=== PATIENT | female | born 1995 | race Caucasian/White ===

== ENCOUNTER 2018-08-20 16:19 | Day surgery (SDC) | payer BC ==
[2018-08-20 16:29] VITALS: BMI 34.0
--- NOTE | 2018-08-20 17:10 | PDOC ---
Attending Attestation - Resident Resident Name: Scarlet Adams - ED Attending Attestation I have performed the following: I have examined & evaluated the patient, The case was reviewed & discussed with the resident, I agree w/resident's findings & plan, Exceptions are as noted - HPI HPI: 23 yo F presents with rectal FB. She inserted a plug approximately 1 hour prior to arrival, however, it advanced past the flange on its own. She tried to remove herself but was unable. She has had similar problem with the same device in the past. Denies abd pain. Able to pass flatus. - Physicial Exam PE: GENERAL: Awake, alert, and fully oriented, in no acute distress HEAD: No signs of trauma EYES: PERRLA, EOMI, sclera anicteric, conjunctiva clear ENT: Auricles normal inspection, hearing grossly normal, nares patent, oropharynx clear without exudates. Moist mucosa NECK: Normal ROM, supple, no lymphadenopathy, JVD, or masses LUNGS: Breath sounds equal, clear to auscultation bilaterally. No wheezes, and no crackles HEART: Regular rate and rhythm, normal S1 and S2, no murmurs, rubs or gallops ABDOMEN: Soft, nontender, normoactive bowel sounds. No guarding, no rebound. No masses EXTREMITIES: Normal range of motion, no edema. No clubbing or cyanosis. No cords, erythema, or tenderness NEUROLOGICAL: Cranial nerves II through XII grossly intact. Normal speech, normal gait SKIN: Warm, Dry, normal turgor, no rashes or lesions noted. RECTAL: Distal end of the device is just barely palpable, despite patient performing valsalva maneuver. - Medical Decision Making 08/20/18 17:10 Unable to remove the device in ED, unable to reach it as it was too far. Will obtain XR to see shape and location, then will contact Gen Surg.
--- NOTE | 2018-08-20 18:10 | PDOC ---
History of Present Illness - General Chief Complaint: Foreign Body (FB) Stated Complaint: FB Time Seen by Provider: 08/20/18 16:28 History Source: Patient Exam Limitations: No Limitations - History of Present Illness Initial Comments: 08/20/18 18:11 Pt is a previously healthy 23yo presenting to ED with a foreign body in the rectum. Pt said that less than 1 hour prior to ED arrival, she used a "butt plug " and it had gotten lodged in her rectum. She tried to remove it herself but she was unsuccessful. She has used this device in the past but it has never gotten stuck. She admits to feeling abdominal pressure, but denies abdominal pain. She noticed some specs of blood when she tried to remove the object herself but she denies current rectal bleeding. Her LMP was 2 months ago (she states that she has irregular periods) and last meal was 2 hours prior to ED arrival. She is denying abdominal pain, n/v/d, dysuria, chest pain, sob, numbness/tingling. PCP: Arturo PMH: none PSH: none Allergies: nkda Social: denies Past History - Past Medical History Allergies/Adverse Reactions: Allergies Allergy/AdvReac Type Severity Reaction Status Date / Time No Known Allergies Allergy Verified 08/20/18 16:21 Home Medications: Ambulatory Orders NK [No Known Home Medication] 08/20/18 COPD: No - Suicide/Smoking/Psychosocial Hx Smoking History: Never smoked Have you smoked in the past 12 months: No Information on smoking cessation initiated: No Hx Alcohol Use: No Drug/Substance Use Hx: No Substance Use Type: None Review of Systems - Review of Systems Able to Perform ROS?: Yes Is the patient limited Syriac proficient: No Constitutional: No: Chills, Fever, Weakness HEENTM: No: Recent change in vision, Throat Pain Respiratory: No: Cough, Shortness of Breath Cardiac (ROS): No: Chest Pain, Lightheadedness, Palpitations, Syncope ABD/GI: Yes: Other (foreign body). No: Constipated, Diarrhea, Nausea, Rectal Bleeding, Vomiting, Abdominal cramping : No: Dysuria, Frequency, Flank Pain Musculoskeletal: No: Back Pain, Joint Pain, Muscle Pain, Neck Pain Integumentary: No: Bruising, Change in Color Neurological: No: Headache, Numbness, Paresthesia, Tingling *Physical Exam - Vital Signs Last Vital Signs Temp Pulse Resp BP Pulse Ox 98.6 F 74 74 H 127/79 98 08/20/18 16:20 08/20/18 16:20 08/20/18 16:20 08/20/18 16:20 08/20/18 16:20 - Physical Exam Comments: 08/20/18 18:16 Pt laying in stretcher comfortably General Appearance: Yes: Nourished, Appropriately Dressed. No: Apparent Distress HEENT: positive: EOMI, DAVID, Pharynx Normal, Hearing Grossly Normal. negative: Pale Conjunctivae, Scleral Icterus (R), Scleral Icterus (L) Neck: positive: Trachea midline, Supple. negative: Lymphadenopathy (R), Lymphadenopathy (L) Respiratory/Chest: positive: Lungs Clear, Normal Breath Sounds. negative: Crackles, Rales, Rhonchi, Stridor, Wheezing Cardiovascular: positive: Regular Rhythm, Regular Rate, S1, S2. negative: Edema , JVD, Murmur Vascular Pulses: Carotid (R): 2+, Carotid (L): 2+, Dorsalis-Pedis (R): 2+, Doralis-Pedis (L): 2+ Gastrointestinal/Abdominal: positive: Normal Bowel Sounds, Soft. negative: Distended, Guarding, Rebound, Tenderness Rectal Exam: positive: normal exam, normal rectal tone, other (no gross blood on glove. Could feel foreign body however unable to retrieve.). negative: hemorrhoids Musculoskeletal: positive: Normal Inspection. negative: CVA Tenderness, CVA Tenderness (L) Extremity: positive: Normal Capillary Refill. negative: Coldness, Pedal Edema, Swelling, Calf Tenderness Integumentary: positive: Normal Color, Dry, Warm. negative: Erythema, Pale, Rash Neurologic: positive: crossing watchman II-XII NML intact, Fully Oriented, Alert, Normal Mood/ Affect, Normal Response, Motor Strength /5 ED Treatment Course - LABORATORY CBC & Chemistry Diagram: 08/20/18 18:43 08/20/18 18:43 - ADDITIONAL ORDERS Additional order review: Laboratory Results 08/20/18 17:11 Urine HCG, Qual Negative - RADIOLOGY Radiology Studies Ordered: Category Date Time Status PELVIS [RAD] Stat Radiology 08/20/18 17:35 Taken Medical Decision Making - Medical Decision Making 08/20/18 18:18 previously healthy 23yo f presenting with foreign body in rectum Vitals: wnl PE: benign Tried to remove foreign body manually however unsuccessful. HcG negative. Ordered pelvis xray. Xray showed foreign body lodged in pelvis. Will consult surgery for removal. Dr. Hansen accepted the case. Will transfer patient over to [facility] OR for foreign body removal. Will order surgical labs and have pt transferred. Pt is otherwise resting comfortably. Agrees with plan for removal in OR. Pt hemodynamically stable. *DC/Admit/Observation/Transfer Diagnosis at time of Disposition: Foreign body anus/rectum Qualifiers: Encounter type: initial encounter Qualified Code(s): T18.5XXA - Foreign body in anus and rectum, initial encounter - Discharge Dispostion Disposition: TRANSFER ACUTE CARE/OTHER HOSP Condition at time of disposition: Stable Decision to Admit order: No - Referrals - Patient Instructions - Post Discharge Activity
[2018-08-20 19:05] LABS: BASO % 1.7 % (0-2.0); EOS % 1.6 % (0-4.5); HEMOGLOBIN 11.8 GM/dl (10.7-15.3); LYMPH % 22.3 % (8-40); MCH 28.5 pg (25.7-33.7); MCHC 32.8 g/dl (32.0-36.0); MEAN CELL VOLUME 86.8 fl (80-96); MEAN PLT VOLUME 8.3 fl (7.5-11.1); MONO % 6.6 % (3.8-10.2); NEUT % 67.8 % (42.8-82.8); PLATELET COUNT 409 K/MM3 (134-434); RBC 4.14 M/mm3 (3.60-5.2); RDW 13.2 % (11.6-15.6); WHITE BLOOD COUNT 11.6 K/mm3 (4.0-10.8)
[2018-08-20 19:16] LABS: ALBUMIN 3.9 g/dl (3.5-5.0); ALK PHOS 60 U/L (32-92); ANION GAP 5 MMOL/L (8-16); BILIRUBIN,TOTAL 0.3 mg/dl (0.2-1.0); BLOOD UREA NITROGEN 12 mg/dl (7-18); CALCIUM 8.9 mg/dl (8.4-10.2); CHLORIDE 105 mmol/L (98-107); CO2 25 mmol/L (22-28); CREATININE 0.7 mg/dl (0.6-1.3); GLUCOSE,RANDOM 93 mg/dl (74-106); MAGNESIUM 1.9 mg/dL (1.8-2.4); PHOSPHOROUS 3.9 mg/dl (2.5-4.6); POTASSIUM 3.8 mmol/L (3.5-5.1); SGOT/AST 20 U/L (10-42); SGPT/ALT 14 U/L (10-40); SODIUM 135 mmol/L (136-145); TOT PROT 6.6 g/dl (6.4-8.3)
[2018-08-20 19:50] LABS: ACTIVATED PTT 38.3 SECONDS (25.2-36.5)
[2018-08-20 19:54] LABS: INR 1.18 (0.82-1.09); PROTHROMBIN TIME (PATIENT) 13.2 SEC (10.2-13.0)
[2018-08-20] MEDS ORDERED: PROPOFOL 20 ML ONE ×2 (22:17→22:30)
[2018-08-20] MEDS ORDERED: SUCCINYLCHOLINE CHLORIDE 200 MG/10 ML VIAL ONE (22:17)
[2018-08-20] MEDS ORDERED: ONDANSETRON 4 MG/2 ML VIAL ONE (22:31)
--- NOTE | 2018-08-20 22:57 | HP ---
CHIEF COMPLAINT: rectal foreign body PCP:? HISTORY OF PRESENT ILLNESS: Patient could not retrieve an anal sex toy and came to the ER and was xferred to [facility] for tx; it could not be removed by the ER physician. ER course was notable for: (1)as above (2) (3) Recent Travel: PAST MEDICAL HISTORY:none PAST SURGICAL HISTORY:none Social History: Smoking:none Alcohol:none Drugs: none Family History:none Allergies No Known Allergies Allergy (Verified 08/20/18 16:21) HOME MEDICATIONS: Home Medications Medication Instructions Recorded NK [No Known Home Medication] 08/20/18 REVIEW OF SYSTEMS CONSTITUTIONAL: Absent: fever, chills, diaphoresis, generalized weakness, malaise, loss of appetite, weight change HEENT: Absent: rhinorrhea, nasal congestion, throat pain, throat swelling, difficulty swallowing, mouth swelling, ear pain, eye pain, visual changes CARDIOVASCULAR: Absent: chest pain, syncope, palpitations, irregular heart rate, lightheadedness , peripheral edema RESPIRATORY: Absent: cough, shortness of breath, dyspnea with exertion, orthopnea, wheezing, stridor, hemoptysis GASTROINTESTINAL: Absent: abdominal pain, abdominal distension, nausea, vomiting, diarrhea, constipation, melena, hematochezia GENITOURINARY: Absent: dysuria, frequency, urgency, hesitancy, hematuria, flank pain, genital pain MUSCULOSKELETAL: Absent: myalgia, arthralgia, joint swelling, back pain, neck pain SKIN: Absent: rash, itching, pallor HEMATOLOGIC/IMMUNOLOGIC: Absent: easy bleeding, easy bruising, lymphadenopathy, frequent infections ENDOCRINE: Absent: unexplained weight gain, unexplained weight loss, heat intolerance, cold intolerance NEUROLOGIC: Absent: headache, focal weakness or paresthesias, dizziness, unsteady gait, seizure, mental status changes, bladder or bowel incontinence PSYCHIATRIC: Absent: anxiety, depression, suicidal or homicidal ideation, hallucinations. PHYSICAL EXAMINATION Vital Signs - 24 hr 08/20/18 08/20/18 16:20 21:29 Temperature 98.6 F 98.7 F Pulse Rate 74 70 Respiratory 74 H 15 Rate Blood Pressure 127/79 120/76 O2 Sat by Pulse 98 Oximetry (%) GENERAL: Awake, alert, and fully oriented, in no acute distress. HEAD: Normal with no signs of trauma. EYES: Pupils equal, round and reactive to light, extraocular movements intact, sclera anicteric, conjunctiva clear. No lid lag. EARS, NOSE, THROAT: nares patent, . Moist mucous membranes. NECK: Normal range of motion, supple without lymphadenopathy, JVD, or masses. LUNGS: Breath sounds equal, clear to auscultation bilaterally. No wheezes, and no crackles. No accessory muscle use. HEART: Regular rate and rhythm, normal S1 and S2 without murmur, rub or gallop. ABDOMEN: Soft, nontender, not distended, normoactive bowel sounds, no guarding, no rebound, no masses. No hepatomegaly or splenomegaly. RECTAL: FB present MUSCULOSKELETAL: Normal range of motion at all joints. No bony deformities or tenderness. No CVA tenderness. UPPER EXTREMITIES: 2+ pulses, warm, well-perfused. No cyanosis. No clubbing. No peripheral edema. LOWER EXTREMITIES: 2+ pulses, warm, well-perfused. No calf tenderness. No peripheral edema. NEUROLOGICAL: Cranial nerves II-XII intact. Normal speech. Normal gait. PSYCHIATRIC: Cooperative. Good eye contact. Appropriate mood and affect. SKIN: Warm, dry, normal turgor, no rashes or lesions noted, normal capillary refill. Laboratory Results - last 24 hr 08/20/18 08/20/18 08/20/18 17:11 18:43 18:43 WBC 11.6 H RBC 4.14 Hgb 11.8 Hct 36.0 MCV 86.8 MCH 28.5 MCHC 32.8 RDW 13.2 Plt Count 409 MPV 8.3 Absolute Neuts (auto) 7.8 Neutrophils % 67.8 Lymphocytes % 22.3 Monocytes % 6.6 Eosinophils % 1.6 Basophils % 1.7 PT with INR Cancelled INR Cancelled PTT (Actin FS) Cancelled Sodium Potassium Chloride Carbon Dioxide Anion Gap BUN Creatinine Creat Clearance w eGFR Random Glucose Calcium Phosphorus Magnesium Total Bilirubin AST ALT Alkaline Phosphatase Total Protein Albumin Urine HCG, Qual Negative Blood Type Antibody Screen 08/20/18 08/20/18 08/20/18 18:43 18:43 19:20 WBC RBC Hgb Hct MCV MCH MCHC RDW Plt Count MPV Absolute Neuts (auto) Neutrophils % Lymphocytes % Monocytes % Eosinophils % Basophils % PT with INR 13.2 H INR 1.18 PTT (Actin FS) 38.3 H Sodium 135 L Potassium 3.8 Chloride 105 Carbon Dioxide 25 Anion Gap 5 L BUN 12 Creatinine 0.7 Creat Clearance w eGFR > 60 Random Glucose 93 Calcium 8.9 Phosphorus 3.9 Magnesium 1.9 Total Bilirubin 0.3 AST 20 ALT 14 Alkaline Phosphatase 60 Total Protein 6.6 Albumin 3.9 Urine HCG, Qual Blood Type O POSITIVE Antibody Screen Negative 08/20/18 19:20 WBC RBC Hgb Hct MCV MCH MCHC RDW Plt Count MPV Absolute Neuts (auto) Neutrophils % Lymphocytes % Monocytes % Eosinophils % Basophils % PT with INR INR PTT (Actin FS) Sodium Potassium Chloride Carbon Dioxide Anion Gap BUN Creatinine Creat Clearance w eGFR Random Glucose Calcium Phosphorus Magnesium Total Bilirubin AST ALT Alkaline Phosphatase Total Protein Albumin Urine HCG, Qual Blood Type O POSITIVE Antibody Screen ASSESSMENT/PLAN:rectal foreign body; to OR for EUA/removal rectal foreign body/ rigid proctosigmoidoscopy and AOSDN; d/w the patient and informed consent obtained. Shahid Hansen MD FACS Visit type - Emergency Visit Emergency Visit: Yes Care time: The patient presented to the Emergency Department on the above date and was hospitalized for further evaluation of their emergent condition. - New Patient This patient is new to me today: Yes Date on this admission: 08/20/18 - Critical Care Critical Care patient: No
[2018-08-20] MEDS ORDERED: LACTATED RINGERS SOLUTION 1,000 ML IV SCH ×2 (23:00→23:11)
--- NOTE | 2018-08-20 23:11 | OP ---
Operative Note - Note: Operative Date: 08/20/18 Pre-Operative Diagnosis: rectal foreign body Operation: EUA/removal rectal foreign body/rigid proctosigmoidoscopy Findings: rectal foreign body (sex toy ) Surgeon: Shahid Hansen Anesthesiologist/REPEAT CHIEF: Papo Mosher Anesthesia: MAC Specimens Removed: rectal foreign body ( sex toy ) Estimated Blood Loss (mls): 0
[2018-08-20] MEDS ORDERED: ACETAMINOPHEN WITH CODEINE 300MG/30MG TABLET PO PRN (23:13)
[2018-08-21 00:59] VITALS: BP 115/52; PULSE 60; TEMP 98.5
[2018-08-21] MEDS ORDERED: PHENYLEPHRINE 0.25%/STARCH 1 EACH SUPP.RECT RC SCH (10:00)
--- NOTE | 2018-08-23 07:29 | OP ---
DATE OF OPERATION: 08/20/2018 PREOPERATIVE DIAGNOSIS: Rectal foreign body. POSTOPERATIVE DIAGNOSIS: Rectal foreign body. PROCEDURE PERFORMED: Examination under anesthesia, removal of rectal foreign body and rigid proctosigmoidoscopy. SURGEON: Shahid Hansen MD ANESTHESIA: IV sedation. OPERATIVE FINDINGS: There was a foreign body in the upper rectum consisting of a metallic sex toy. There was some punctate bleeding of the mucosa of the anal canal and some small external hemorrhoids. The rest of the findings were unremarkable. DESCRIPTION OF PROCEDURE: The patient was placed on the operating table in the dorsal lithotomy position, and a time-out was taken. Then intravenous sedation was administered. Examination under anesthesia was carried out, and the palpable foreign body identified after dilatation of the sphincter to 3 fingerbreadths. The foreign body was removed intact and sent for pathological examination. Rigid sigmoidoscopy was then carried out to 20 cm from the anal verge, and the previously noted findings were observed. A small rectal pack, consisting of Surgicel and Xeroform, was placed and the procedure terminated at this point. The patient was transferred to the postanesthesia care unit in stable condition, awake and alert. ESTIMATED BLOOD LOSS: Minimal. REPLACEMENT: Crystalloid. DRAINS: None. SPECIMEN: Rectal foreign body to Pathology. I, Shahid Hansen, was physically present in the operating room from the time the patient was placed on the operating room table until she was transferred to the postanesthesia care unit in my accompaniment. MD TAMI Traylor/[id number]
== END 2018-08-21 01:47 | disposition home or self-care (01) ==
LOC: FER 16:19 → JASU-SURG 22:15 → JSAMEDAYSX 22:19 → J5S 08-21 00:15 → JASU-SURG 08-21 01:47
PROVIDERS: ATTEND Surgery
PROC: 0DJD8ZZ Inspection of Lower Intestinal Tract, Via Natural or Artificial Opening Endoscopic (ICD-10-PCS; 2018-08-20)
PROC: 0DCP7ZZ Extirpation of Matter from Rectum, Via Natural or Artificial Opening (ICD-10-PCS; principal; 2018-08-20 22:11)
DX: T18.5XXA Foreign body in anus and rectum, initial encounter (principal); X58.XXXA Exposure to other specified factors, initial encounter; Y93.9 Activity, unspecified; Y92.9 Unspecified place or not applicable; Y99.9 Unspecified external cause status
CPT/HCPCS: 36415; 72170-TC-FY; 80053; 83735; 84100; 84703; 85025; 85610; 85730; 86850; 86900; 86901; 88300-TC; 94760; 99282-25